=== PATIENT | male | born 1980 | race Caucasian/White ===

== ENCOUNTER 2016-12-02 10:39 | Emergency (ER) | payer MEDICAID ==
[2016-12-02 11:05] VITALS: BP 117/67
[2016-12-02] MEDS ORDERED: Ketorolac 60 MG/2 ML SDV IM ONE (11:09)
--- NOTE | 2016-12-02 11:12 | EDM.PDOC ---
ED HPI Trauma - General Chief Complaint: Lower Extremity Injury/Pain Stated Complaint: RIGHT KNEE INJURY Time Seen by Provider: 12/02/16 11:07 Source: Reports: Patient, RN notes reviewed History Limitations: Reports: No limitations - History of Present Illness INITIAL COMMENTS - FREE TEXT/NARRATIVE: 36-year-old gentleman presents emergency Department day complaint of right knee pain he has a history of prior anterior cruciate ligament repair unfortunately today he was stepping off a tractor about 2 foot step planted his leg and had a twisting injury he cannot bear weight on the right knee and is in significant amount of pain Allergies/ADRs: Allergies No Known Allergies Allergy (Verified 10/25/16 07:30) Home Medications: Ambulatory Orders NK [No Known Home Meds] 12/02/16 [Confirmed 12/02/16] Past Medical History HEENT History: Reports: Impaired vision Respiratory History: Reports: Sleep apnea Gastrointestinal History: Reports: Gastritis, Irritable bowel syndrome Musculoskeletal History: Reports: Fracture Psychiatric History: Reports: Anxiety, Depression, Panic attack Endocrine/Metabolic History: Reports: Obesity/BMI 30+ Dermatologic History: Reports: Other (see below) Other Dermatologic History: leg scabs - Infectious Disease History Infectious Disease History: Reports: Chicken pox - Past Surgical History HEENT Surgical History: Reports: None Respiratory Surgical History: Reports: None GI Surgical History: Reports: None Endocrine Surgical History: Reports: None Musculoskeletal Surgical History: Reports: Arthroscopic knee, Arthroscopic procedure Dermatological Surgical History: Reports: None Social & Family History - Tobacco Use Smoking Status *Q: Current Every Day Smoker Years of Tobacco use: 22 Packs/Tins Daily: 1 Used Tobacco, but Quit: No Second Hand Smoke Exposure: No - Caffeine Use Caffeine Use: Reports: Coffee - Alcohol Use Days Per Week of Alcohol Use: 0 - Recreational Drug Use Recreational Drug Use: No Recreational Drug Type: Reports: Marijuana/Hashish, Methamphetamine Recreational Drug Use Frequency: Rarely Review of Systems - Review of Systems Review Of Systems: See Below Musculoskeletal: Reports: joint pain (Right knee pain) Skin: Reports: no symptoms Neurological: Reports: no symptoms Trauma Exam - Physical Exam Exam: See Below Text/Narrative:: Examination of the right knee he does have some bruising on the medial aspect he is tender to palpation along the medial joint 9 Marnie's is negative does not tolerate valgus maneuver varus maneuver does not produce pain will not tolerate anterior drawer Exam Limited By: No limitations General Appearance: Reports: alert, WD/WN, no apparent distress Respiratory Exam: Reports: no respiratory distress Course - Vital Signs Last Recorded V/S: Last Vital Signs Temp 96.4 F 12/02/16 11:04 Pulse 84 12/02/16 11:04 Resp 14 12/02/16 11:04 BP 117/67 12/02/16 11:04 Pulse Ox 97 12/02/16 11:04 - Orders/Labs/Meds Orders: Active Orders 24 hr Category Date Time Status DME for Discharge [COMM] Per Unit Routine Oth 12/02/16 12:16 Ordered Meds: Medications Discontinued Medications Generic Name Dose Route Start Last Admin Trade Name Freq PRN Reason Stop Dose Admin Ketorolac Tromethamine 60 mg 12/02/16 11:09 12/02/16 11:28 Toradol IM 12/02/16 11:10 60 mg ONETIME ONE Administration Departure - Departure Time of Disposition: 12:17 Disposition: Home, Self-Care 01 Condition: good Clinical Impression: Right knee injury Qualifiers: Encounter type: initial encounter Qualified Code(s): S89.91XA - Unspecified injury of right lower leg, initial encounter Forms: ED Department Discharge Additional Instructions: The orthopedics Department will call you with an appointment time, use ibuprofen for baseline pain control in combination with Percocet for breakthrough pain call or return to the ED with worsening of symptoms, try and remain in the knee immobilizer and crutches until reevaluated by orthopedics - My Orders Last 24 Hours: My Active Orders 12/02/16 12:16 DME for Discharge [COMM] Per Unit Routine - Assessment/Plan Last 24 Hours: My Active Orders 12/02/16 12:16 DME for Discharge [COMM] Per Unit Routine Plan: Assessment Acuity = acute Site and laterality = right knee injury Etiology = concern for ligament disruption Manifestations = pain Location of injury = home Lab values = no acute process appreciated in the bony x-ray film Plan I did review x-ray with him prescription written for Percocet, knee immobilizer and crutches followup with orthopedics next week Patient was in agreement with the plan all questions were answered, they were instructed to return to the emergency department or call for worsening symptoms. This note was dictated using [employer] voice recognition software please call with any questions.
--- NOTE | 2016-12-02 12:07 | CR ---
Knee 3V Rt HISTORY: Pain COMPARISON: None FINDINGS: Normal joint space preservation. No acute fracture or effusion.
== END 2016-12-02 13:10 | disposition home or self-care (01) ==
LOC: JP.ED 10:39
DX: S89.91XA Unspecified injury of right lower leg, initial encounter (principal); F17.210 Nicotine dependence, cigarettes, uncomplicated; E66.9 Obesity, unspecified; Z68.33 Body mass index [BMI] 33.0-33.9, adult; Z98.890 Other specified postprocedural states; W18.40XA Slipping, tripping and stumbling without falling, unspecified, initial encounter
CPT/HCPCS: 73562; 96372; 99284; J1885

== ENCOUNTER 2016-12-20 05:57 | Day surgery (SDC) | payer MEDICAID ==
[2016-12-20] MEDS ORDERED: Lactated Ringers 1,000 ML IV SCH (06:30)
[2016-12-20] MEDS ORDERED: Bupivacaine 0.25%/EPINEPHrine 1:200,000 30 ML SDV ONE (06:47)
[2016-12-20] MEDS ORDERED: methylPREDNISolone Acetate 80 MG/ML SDV ONE (06:47)
[2016-12-20] MEDS ORDERED: Neostigmine Methylsulfate 1 MG/ML 5 ML Syringe ONE (07:16)
[2016-12-20] MEDS ORDERED: Propofol 200 MG/20 ML SDV ONE (07:16)
[2016-12-20] MEDS ORDERED: Rocuronium 50 MG/5 ML Vial ONE ×2 (07:16→09:57)
[2016-12-20] MEDS ORDERED: Dexamethasone 4 MG/ML SDV ONE (07:16)
[2016-12-20] MEDS ORDERED: Ondansetron 4 MG/2 ML SDV ONE (07:16)
[2016-12-20] MEDS ORDERED: fentaNYL 250 MCG/5 ML SDV ONE ×3 (07:16→09:45)
[2016-12-20] MEDS ORDERED: ceFAZolin 2 GM in Sodium Chloride 0.9% 50 ML IV ONE (07:30)
[2016-12-20] MEDS ORDERED: Bupivacaine 0.5%/EPINEPHrine 1:200,000 50 ML MDV ONE (08:12)
[2016-12-20] MEDS ORDERED: Povidone-Iodine 10% Soln 118.25 ML Bottle ONE (08:36)
[2016-12-20] MEDS ORDERED: Lactated Ringers 2,000 ML ONE (10:35)
[2016-12-20] MEDS ORDERED: fentaNYL 100 MCG/2 ML SDV IVPUSH ONE (11:03)
--- NOTE | 2016-12-20 11:18 | OR ---
DATE OF PROCEDURE: 12/20/2016 PREOPERATIVE DIAGNOSES: 1. Right anterior cruciate ligament tear. 2. Bucket-handle medial meniscus tear. POSTOPERATIVE DIAGNOSES: 1. Right anterior cruciate ligament tear. 2. Bucket-handle medial meniscus tear. PROCEDURE: 1. Right anterior cruciate ligament reconstruction using a AperFix II system with a 10 x 24 mm femoral implant and 11 x 30 mm tibial peek implant as well as a semi-tendinosis graft. 2. Partial medial meniscectomy. VICE PRESIDENT RESEARCH: AMBAR Ross. ANESTHESIA: Laryngeal mask airway, general. ESTIMATED BLOOD LOSS: 20 mL. COMPLICATIONS: None. SPECIMEN: None. DISPOSITION: Stable to PACU. INDICATIONS FOR THE PROCEDURE: The patient was seen preoperatively in the clinic. He previously suffered a left anterior cruciate ligament tear. He felt the same way. He was seen at the clinic. We obtained an MRI, which confirmed the above-mentioned diagnosis. Risks and benefits of the procedure were explained to the patient. Informed consent was obtained. DETAILS OF PROCEDURE: The patient was seen preoperatively by myself and the Anesthesia staff in the preop holding area where the operative site was marked. He was brought to the operative suite by the Anesthesia staff, where general anesthesia was administered. All extremities were well padded. A pad was used under the left thigh. SCDs were placed on the left leg. A post was used on the right side. A well-padded tourniquet was placed on the right thigh. The right lower extremity was then prepped and draped in a sterile manner. Time-out was called identifying the correct patient, the correct procedure, the correct site, and the antibiotics had begun with an appropriate period of time. Right lower extremity was then exsanguinated. Tourniquet was raised to 300 mmHg for 120 minutes and let down during closure. The incisions were made through the junction of the lateral and middle third of the patellar tendon, 1 cm distal pole of the patella as well as on the medial border of the patellar tendon, 1 cm distal to the patella as well as on the medial border of the tibia in a transverse manner, 3 fingerbreadths distal to the joint line. The tibia was exposed using a periosteal elevator. The portals were entered with a trocar starting at evaluating the patellofemoral compartment, which looked good as well as the lateral compartment. An extremely large displaced bucket-handle medial meniscus tear was visualized. A great deal of time was taken to remove the unstable portion, leaving just the rim of the medial meniscus present. I did use our cautery unit to stabilize the edges. I then used a shaver to remove part of the fat pad for visualization as well as removing the remainder of the footprint of the ACL, which was present both on the lateral femoral wall and the anterior medial tibia, just anterior to the insertion of the lateral meniscus. I then used a small osteotome to do a wall plasty, ensuring that our Peterson 65-degree retractor would fit in without causing impingement on the posterior cruciate ligament. I then removed any extraneous material from this procedure. I then used a curette to clean up the lateral wall. We then used our Peterson retractor with the leg in extension and drilled the wire at 65 degrees up into the joint space using the Peterson guide. I then flexed the knee back and then used the Peterson guide and then removed the Peterson guide. I then protected the tip of the guidewire after tapping it in just a little bit into the joint space, so I could see it better and then reamed with a 10 mm reamer and then just distally with an 11 mm reamer. After this had been accomplished, I removed any extra material with a shaver around the hole created for our tibial portion of the graft. I then used an over the top 1.5 mm guide, and going through the transtibial approach, I then placed a guidewire into the femur, well placed in the femur in slight flexion. I then reamed this to 30 mm. After this had been accomplished, I then visualized the hole to make sure that it had good edges and clean. I then prepared my graft with whip stitches after placing it through the [place] femoral instrumentation. I marked both of these at 30 mm, so I would know how far to put them in, and then with the pin up, inserted the [place] transtibially up to the femoral hole. Once this was confirmed to be in good position via arthroscopy, I then deployed the device, which compressed the device into the bone and the graft against the sides of the wall. I then removed the device and then placed the knee in full extension and then with attention applied our 11 mm sleeve over a Nitinol wire, followed by our peek implant. I then confirmed that this had been seated within the tibia, both from our anterior cortex and arthroscopically in the joint. I then ranged the knee, and it showed the ACL graft to be in good position under appropriate tension without any impingement on the posterior cruciate ligament. I then removed some extra material, and I took final pictures. We then injected the knee with 20 mL of 0.5% Marcaine with epinephrine. We then closed our tibial incision with 2-0 Vicryl pops followed by 3-0 nylon in a mattress suture fashion followed by arthroscopic partial closure with 3-0 nylon in a mattress suture followed by sterile dressing. The patient was then allowed to awakened and go to the PACU in stable condition. Sg Lewis DO /[id number]
[2016-12-20] MEDS ORDERED: hydrOXYzine HCl 50 MG/ML SDV IM ONE (11:28)
[2016-12-20] MEDS ORDERED: Morphine 2 MG/ML Syringe IVPUSH ONE ×2 (11:44→12:17)
[2016-12-20] MEDS ORDERED: Ketorolac 30 MG/ML SDV IM ONE (12:22)
[2016-12-20 14:09] VITALS: BP 155/98
--- NOTE | 2016-12-20 14:56 | PCM.PN ---
- General Info Date of Service: 12/20/16 - Patient Data Vitals - most recent: Last Vital Signs Temp 36.7 C 12/20/16 13:13 Pulse 120 H 12/20/16 13:55 Resp 18 12/20/16 13:55 BP 155/98 H 12/20/16 13:55 Pulse Ox 96 12/20/16 13:55 Weight - most recent: 236 lb 6.4 oz I&O - last 24 hours: Intake & Output 12/19/16 12/20/16 12/20/16 22:59 06:59 14:59 Intake Total 1000 Balance 1000 Med Orders - Current: Current Medications Lactated Ringer's (Ringers, Lactated) 1,000 mls @ 0 mls/hr IV ASDIRECTED BHARGAV PRN Reason: KVO Last Admin: 12/20/16 06:52 Dose: 25 mls/hr Discontinued Medications Bupivacaine HCl/Epinephrine Bitart (Marcaine 0.25%/Epinephrine 1:200,000) Confirm Administered Dose 30 ml .ROUTE .STK-MED ONE Stop: 12/20/16 06:48 Bupivacaine HCl/Epinephrine Bitart (Marcaine 0.5%/Epinephrine 1:200,000) Confirm Administered Dose 50 ml .ROUTE .STK-MED ONE Stop: 12/20/16 08:13 Last Admin: 12/20/16 10:12 Dose: 25 ml Dexamethasone (Dexamethasone) Confirm Administered Dose 4 mg .ROUTE .STK-MED ONE Stop: 12/20/16 07:17 Fentanyl (Sublimaze) Confirm Administered Dose 250 mcg .ROUTE .STK-MED ONE Stop: 12/20/16 07:17 Fentanyl (Sublimaze) Confirm Administered Dose 250 mcg .ROUTE .STK-MED ONE Stop: 12/20/16 08:26 Fentanyl (Sublimaze) Confirm Administered Dose 250 mcg .ROUTE .STK-MED ONE Stop: 12/20/16 09:46 Fentanyl (Sublimaze) 100 mcg IVPUSH ONETIME ONE Stop: 12/20/16 11:04 Last Admin: 12/20/16 11:07 Dose: 100 mcg Glycopyrrolate () Confirm Administered Dose 1 mg .ROUTE .STK-MED ONE Stop: 12/20/16 07:17 Hydroxyzine HCl (Vistaril) 100 mg IM ONETIME ONE Stop: 12/20/16 11:29 Last Admin: 12/20/16 11:34 Dose: 100 mg Cefazolin Sodium 2 gm/ Sodium (Chloride) 50 mls @ 100 mls/hr IV ONETIME ONE Stop: 12/20/16 07:59 Last Admin: 12/20/16 07:42 Dose: 100 mls/hr Lactated Ringer's (Ringers, Lactated) Confirm Administered Dose 2,000 mls @ as directed .ROUTE .STK-MED ONE Stop: 12/20/16 10:36 Ketorolac Tromethamine (Toradol) 30 mg IM ONETIME ONE Stop: 12/20/16 12:23 Last Admin: 12/20/16 12:31 Dose: 30 mg Methylprednisolone Acetate (Depo-Medrol) Confirm Administered Dose 80 mg .ROUTE .STK-MED ONE Stop: 12/20/16 06:48 Morphine Sulfate (Morphine) 4 mg IVPUSH ONETIME ONE Stop: 12/20/16 11:45 Last Admin: 12/20/16 11:52 Dose: 4 mg Morphine Sulfate (Morphine) 4 mg IVPUSH ONETIME ONE Stop: 12/20/16 12:18 Last Admin: 12/20/16 12:25 Dose: 4 mg Neostigmine Methylsulfate (Neostigmine) Confirm Administered Dose 5 mg .ROUTE .STK-MED ONE Stop: 12/20/16 07:17 Ondansetron HCl (Zofran) Confirm Administered Dose 4 mg .ROUTE .STK-MED ONE Stop: 12/20/16 07:17 Povidone Iodine (Betadine 10% Soln) Confirm Administered Dose 1 ml .ROUTE .STK- MED ONE Stop: 12/20/16 08:37 Last Admin: 12/20/16 10:12 Dose: 1 ml Propofol (Diprivan 20 Ml) Confirm Administered Dose 200 mg .ROUTE .STK-MED ONE Stop: 12/20/16 07:17 Rocuronium [employer] (Zemuron) Confirm Administered Dose 50 mg .ROUTE .STK-MED ONE Stop: 12/20/16 07:17 Rocuronium [employer] (Zemuron) Confirm Administered Dose 50 mg .ROUTE .STK-MED ONE Stop: 12/20/16 09:58 - Problem List & Annotations (1) Right ACL tear SNOMED Code(s): 337741313 Code(s): S83.511A - SPRAIN OF ANTERIOR CRUCIATE LIGAMENT OF RIGHT KNEE, INIT Status: Acute Current Visit: No Qualifiers: - Problem List Review Problem List Initiated/Reviewed/Updated: Yes - Plan Plan:: Dyllan is having difficulties with pain post op. I advised him that he can take 2 tablets of his percocet every 4 hours just for 2 days. We will also prescribe him visteril to help. I advised him to keep it elevated and iced.
== END 2016-12-20 14:57 | disposition home or self-care (01) ==
LOC: JP.SDS 05:57
PROVIDERS: ATTEND Orthopaedic Surgery
DX: S83.511D Sprain of anterior cruciate ligament of right knee, subsequent encounter (principal); S83.211A Bucket-handle tear of medial meniscus, current injury, right knee, initial encounter; F41.8 Other specified anxiety disorders; E66.9 Obesity, unspecified; Z68.30 Body mass index [BMI] 30.0-30.9, adult; Z98.890 Other specified postprocedural states; Z91.030 Bee allergy status
CPT/HCPCS: 29881; 29888; J0690; J1040; J1100; J1885; J2270; J2405; J2704; J3010; J3410; J7050; J7120; C1762; C1776

== ENCOUNTER 2021-08-27 06:55 | Day surgery (SDC) | payer MEDICAID ==
[2021-08-27] MEDS ORDERED: Lidocaine 1% with EPINEPHrine 1:100,000 50 ML MDV ONE (07:06)
[2021-08-27] MEDS ORDERED: Bupivacaine 0.5% 50 ML MDV ONE (07:06)
[2021-08-27] MEDS ORDERED: Albuterol/Ipratropium 3.0-0.5 MG/3 ML Neb Soln NEB ONE (07:26)
[2021-08-27] MEDS ORDERED: Sodium Chloride 0.9% 1,000 ML IV SCH ×2 (07:30→09:00)
[2021-08-27] MEDS ORDERED: Glycopyrrolate 0.2 MG/ML 5 ML MDV ONE (07:40)
[2021-08-27] MEDS ORDERED: Ondansetron 4 MG/2 ML SDV ONE (07:40)
[2021-08-27] MEDS ORDERED: Succinylcholine 200 MG/10 ML MDV ONE (07:40)
[2021-08-27] MEDS ORDERED: Propofol 200 MG/20 ML SDV ONE (07:40)
[2021-08-27] MEDS ORDERED: Neostigmine Methylsulfate 1 MG/ML 5 ML Syringe ONE (07:40)
[2021-08-27] MEDS ORDERED: fentaNYL 250 MCG/5 ML SDV ONE (07:40)
[2021-08-27] MEDS ORDERED: Rocuronium 50 MG/5 ML Vial ONE (07:40)
[2021-08-27] MEDS ORDERED: Dexamethasone 4 MG/ML SDV ONE (07:40)
[2021-08-27] MEDS ORDERED: ceFAZolin 2 GM in Premix Bag 1 BAG IV ONE (09:30)
[2021-08-27] MEDS ORDERED: metroNIDAZOLE/Normal Saline 500 MG in Premix Bag 1 BAG IV ONE (09:30)
[2021-08-27] MEDS ORDERED: Ketorolac 30 MG/ML SDV ONE (11:36)
[2021-08-27] MEDS ORDERED: Lactated Ringers 1,000 ML ONE (11:56)
[2021-08-27] MEDS ORDERED: fentaNYL 100 MCG/2 ML SDV IVPUSH ONE (13:00)
[2021-08-27] MEDS ORDERED: Acetaminophen/HYDROcodone 325-5 MG Tab PO PRN (13:17)
[2021-08-27] MEDS ORDERED: Morphine 2 MG/ML SYRINGE IVPUSH PRN (13:18)
[2021-08-27 14:30] VITALS: BP 134/76; PULSE 109
--- NOTE | 2021-08-27 15:44 | OR ---
DATE OF PROCEDURE: 08/27/2021 SURGEON: Niranjan Greenfield MD PROCEDURE: Bilateral total extraperitoneal hernia repair. COMPLICATIONS: None. DIRECTOR LOAN: None. ANESTHETIC: General. RISKS: Risks, benefits, alternatives, and limitations including, but not limited to infection, bleeding, perforation, false positives and false negatives were explained to the patient along with injury to testicles, testicular loss secondary to blood vessel issues, injury of the vas deferens resulting in sterility and other risks not listed here were explained to the patient and he wished to proceed. PROCEDURE IN DETAIL: The patient was placed in supine position. An infraumbilical incision was made approximately 1 cm in size. This was then carried down with Army-Faxon to the external oblique. This was then opened with electrocautery. The left rectus muscle was then spared by moving this out of the way with Army-Faxon and a Pean was subsequently used to create a preperitoneal space. The trocar was then inserted. The abdomen was subsequently insufflated. Two additional 5 mm ports were entered under direct visualization. The preperitoneal space was insufflated. The left hernia was addressed first. This was dissected on the left side starting at the lateral angle and then developed into the avascular space. Sac could be identified and was rather quite large associated with a cord lipoma. This was subsequently dissected into the preperitoneal space again and free from the cord structures. The cord structures were identified but not interacted with anyway. The right side was then performed in a same manner, same fashion same technique in the same sequence. Both of these were indirect inguinal hernias. The bilateral pieces of mesh were then inserted. These were placed with 1 cm overlap at least of each other and the peritoneum. These were unfolded without difficulty. The abdomen was subsequently desufflated while the mesh was held in place. Of note, both sides were performed in a same manner, same fashion, same technique in the same sequence using the same equipment. The vas deferens and the vascular structures associated with the testicle were identified and were not associated with any other way other than re-verification multiple times. Of note, at no time was the "triangle of doom" nor the "triangle of pain" entered or interacted with in anyway. The fascia was then closed with 2-0 Vicryl interrupted suture x2. Subcutaneous tissues were closed with 3-0 Vicryl and the skin was closed with 4-0 Vicryl. Dermabond was applied. The patient tolerated the procedure well. Niranjan Greenfield MD /[id number]
--- NOTE | 2021-08-27 15:44 | OR ---
DATE OF PROCEDURE: 08/27/2021 SURGEON: Niranjan Greenfield MD PROCEDURES: 1. Bilateral transversus abdominis plane blocks bilaterally. 2. Bilateral rectus sheath blocks bilaterally. COMPLICATIONS: None. SUPERVISOR UNLOADING: None. RISKS: Risks, benefits, alternatives, and limitations including, but not limited to infection, bleeding, injury to abdominal structures were explained to the patient, and he wished to proceed. PROCEDURE IN DETAIL: The patient was placed in supine position. The left transversus plane was identified first. This was accessed using a 21-gauge needle using a 13 megahertz ultrasound probe. The 20% solution was subsequently injected. The other side was then performed in the same way. Bilateral rectus sheaths were then injected by identifying the preperitoneal space and injecting under direct visualization. Each one of these locations was injected with 20% of the solution respectively. All four locations were performed in same manner, same fashion, same technique in the same sequence. The peritoneum was not penetrated or advanced at any time nor was the needle blindly advanced. The patient tolerated all four procedures well. Niranjan Greenfield MD /[id number]
== END 2021-08-27 14:54 | disposition home or self-care (01) ==
LOC: JP.SDS 06:55
PROVIDERS: ATTEND Surgery
DX: K40.20 Bilateral inguinal hernia, without obstruction or gangrene, not specified as recurrent (principal); F17.210 Nicotine dependence, cigarettes, uncomplicated; K21.9 Gastro-esophageal reflux disease without esophagitis; E66.01 Morbid (severe) obesity due to excess calories; Z91.030 Bee allergy status; Z90.49 Acquired absence of other specified parts of digestive tract; Z98.890 Other specified postprocedural states
CPT/HCPCS: 36415; 49505; 80053; 85027; 94640; A9270; C1727; C1781; J0171; J0330; J0690; J1100; J1885; J2405; J2704; J2710; J2795; J3010; J3490; J7030; J7120; J7620-GY

== ENCOUNTER 2025-03-28 20:54 | Emergency (ER) | payer MEDICAID ==
[2025-03-28] MEDS: Glucagon,Human Recombinant 1 MG Vial IM ONE (21:36)
[2025-03-28] MEDS ORDERED: Sodium Chloride 0.9% 10 ML Syringe FLUSH PRN (22:59)
[2025-03-28 23:10] LABS: BASOPHILS ABSOLUTE AUTO 0.08 K/uL (0.00-0.10); BASOPHILS PERCENT AUTO 0.9 % (0.1-1.3); EOSINOPHILS ABSOLUTE AUTO 0.27 K/uL (0.00-0.40); EOSINOPHILS PERCENT AUTO 3.1 % (0.0-5.4); HEMATOCRIT 46.1 % (38.4-49.7); HEMOGLOBIN 15.9 g/dL (12.9-16.9); IMMATURE GRAN ABSOLUTE AUTO 0.02 K/uL (0.00-0.23); IMMATURE GRAN PERCENT AUTO 0.2 % (0.0-0.7); LYMPHOCYTES ABSOLUTE AUTO 2.23 K/uL (0.8-3.3); LYMPHOCYTES PERCENT AUTO 25.6 % (11.4-47.7); MEAN CORPUSCULAR HEMOGLOBIN 31.7 pg (31.6-35.5); MEAN CORPUSCULAR HGB CONC 34.5 g/dL (31.6-35.5); MONOCYTES ABSOLUTE AUTO 0.71 K/uL (0.20-0.90); MONOCYTES PERCENT AUTO 8.2 % (3.3-12.6); NEUTROPHILS ABSOLUTE AUTO 5.39 K/uL (1.0-7.6); PLATELET COUNT,PLT 228 K/uL (130-375); RED BLOOD CELL COUNT 5.01 M/uL (4.14-5.76); WHITE BLOOD CELL COUNT,WBC 8.7 K/uL (3.2-11.0)
[2025-03-28] MEDS ORDERED: Propofol 200 MG/20 ML SDV ONE (23:22)
[2025-03-28] MEDS ORDERED: Midazolam 1 MG/ML 2 ML SDV ONE (23:22)
[2025-03-28] MEDS ORDERED: fentaNYL 100 MCG/2 ML SDV ONE (23:22)
[2025-03-28 23:27] LABS: ANION GAP 9.9 mmol/L (5.0-14.0); CALCIUM 9.2 mg/dL (8.5-10.1); CREATININE 1.1 mg/dL (0.8-1.3); EST CRCL DRUG DOSING (CG) 95.04 mL/min; POTASSIUM,K 3.7 mmol/L (3.6-5.2)
[2025-03-29 00:16] VITALS: BP 102/66; PULSE 80
== END 2025-03-29 00:46 | disposition home or self-care (01) ==
LOC: JP.ED 20:54
DX: T18.128A Food in esophagus causing other injury, initial encounter (principal); Z91.030 Bee allergy status; Z90.49 Acquired absence of other specified parts of digestive tract; W44.F3XA Food entering into or through a natural orifice, initial encounter; Y93.89 Activity, other specified
CPT/HCPCS: 36415; 71046; 80048; 85025; 93005; 96372; 99285; J1610; J2250; J2704; J3010; 00731-QZ; 93010; 99284